=== PATIENT | female | born 1975 | race Caucasian/White ===

== ENCOUNTER → 2021-03-18 15:26 | Outpatient (BNVA) | payer MEDICARE, SELFPAY | PROVIDERS: Family Provider Family Medicine; PCP Family Medicine; Visit Provider Orthopaedic Surgery | DX: R52 Pain, unspecified (principal); M48.062 Spinal stenosis, lumbar region with neurogenic claudication | CPT/HCPCS: 72110 ==

== ENCOUNTER → 2021-05-14 10:07 | Outpatient (BNVA) | payer MEDICARE, SELFPAY | PROVIDERS: Family Provider Family Medicine; PCP Family Medicine; Visit Provider Orthopaedic Surgery | DX: Z20.822 Contact with and (suspected) exposure to COVID-19 (principal); Z01.818 Encounter for other preprocedural examination | CPT/HCPCS: 87635 ==

== ENCOUNTER 2021-05-21 05:27 | Day surgery (SDC) | payer MEDICARE, SELFPAY ==
[2021-05-14 11:26] VITALS: BMI 28.8
--- NOTE | 2021-05-14 15:53 | ANES.PREANE2 ---
Pre-Anesthetic Assessment Pre-Anesthetic Assessment: Height/Weight: Height 1.75 m Weight 88.451 kg Proposed Procedure: Operation Date: 05/21/21 07:00 Proposed Procedures p Lumbar Spine Decompression L4/5 26868 M48.062(Not Applicable) - Pavan Latif, DO Was Beta Kenny taken within 24 hours: N/A Was Clonidine taken within 24 hours: N/A Social: Social History: No alcohol and No tobacco Exam: Pre-Anes Outpt Exam: alert, oriented x 3, clear to auscultation bilaterally and regular rate & rhythm Airway: Submandibular: WNL Cervical ROM: WNL MP: 2 Dentition: Partials Pulmonary: Pulmonary: Asthma Metabolic: Metabolic: DM Musc/skel: Musc/skel: Lower Back Pain Neuropsych: Neuropsych: Neuropathy Anesthetic Plan: ASA status: 3 Anesthesia: General Risk of > 500 ml blood loss (7ml/kg in children): No Data Anesthesia Cardiac Studies: No Data to Display
[2021-05-21] VITALS (7 sets, daily range): BP systolic 101–129; BP diastolic 61–86; PULSE 66–96; RESP 16–18; TEMP 36.4; O2SAT 94–100
--- NOTE | 2021-05-21 | SCC_ITS ---
Procedure Done: 1. Bilateral L4/5 laminectomy with partial facetectomy 5.2 seconds of fluoroscopic guidance, for a cumulative dose of 1.48 mGy, was provided to Dr. Latif by the radiology department. C-arm images of the lumbar spine were saved for the patient's permanent record. [facility]
--- NOTE | 2021-05-21 | XR_ITS ---
WS: [id number] C-ARM RADIOGRAPHS LUMBAR SPINE; 2 IMAGES HISTORY: decompression COMPARISON: None available. Intraoperative marker over the L4-5 disc space. XR/XR lumbar spine 1V [id number] IMPRESSION: Intraoperative marker at the L4-5 disc space.
[2021-05-21] MEDS: sodium chloride 0.9% 1,000 ML 30 ML IV (06:10)
--- NOTE | 2021-05-21 06:43 | W.PM.OPSUD ---
Surgery/Procedure H&P Update DATE OF PROCEDURE: May 21, 2021 DATE H&P PERFORMED: 05/01/21 H&P UPDATE INFORMATION: I have reviewed H&P completed within last 30 days, I have examined patient prior to procedure and No changes to prior documentation PREOP DIAGNOSIS: Lumbar radiculopathy PLANNED PROCEDURE: Operation Date: 05/21/21 07:00 Proposed Procedures p Lumbar Spine Decompression L4/5 38249 M48.062(Not Applicable) - Pavan Latif DO
--- NOTE | 2021-05-21 06:45 | P.ANESUD_ITS ---
Pre-Anesthetic Update Pre-Anesthetic Assessment: Date of Surgery/Procedure: 05/21/21 Preop Anat gnosis: Lumbar radiculopathy Proposed Procedure: Operation Date: 05/21/21 07:00 Proposed Procedures p Lumbar Spine Decompression L4/5 59171 M48.062(Not Applicable) - Pavan Latif, DO Any changes to Pre-Anesthetic Assessment?: No Last Intake: Intake Last Liquid Date 05/20/21 Last Liquid Time 21:00 Last Solid Date 05/20/21 Last Solid Time 21:00 Vitals: Temperature 97.5 F L 05/21/21 05:56 Temperature Source Temporal Artery S can 05/21/21 05:56 Pulse Rate 76 05/21/21 05:56 Respiratory Rate 18 05/21/21 05:56 Blood Pressure 110/86 05/21/21 05:56 Blood Pressure Rose n 94 05/21/21 05:56 Pulse Oximetry 98 05/21/21 05:56 Oxygen Delivery Me thod 05/21/21 06:00 Exam: Pre-Anes Outpt Exam: alert, oriented x 3, clear to auscultation bilaterally and regular rate & rhythm Cardiac Studies: No Data to Display
[2021-05-21 06:48] LABS: Glucose Point of Care 79 mg/dL (70-110)
[2021-05-21] MEDS: clindamycin 900 MG/50 ML PREMIX 100 MG IV (06:56)
--- NOTE | 2021-05-21 07:45 | PM.OP ---
Operative Report Date of procedure: May 21, 2021 Pre-op Diagnosis: lumbar stenosis with neurogenic claudication Post-op diagnosis: same Procedure Done: 1. Bilateral L4/5 laminectomy with partial facetectomy Surgeon: Pavan Latif Waxing Machine Operator Helper: Andres Collazo Waxing Machine Operator Helper: The surgical asst, Andres Collazo, SHONA was needed for his expertise under the microscope. He was important and necessary throughout the procedure to complete in a safe and timely manner. He assisted with patient positioning prepping and draping tissue retraction suctioning of the operative field protection of the dural sac and tissue closure Anesthesia: General Estimated blood loss (mL): 5 Condition: stable Disposition: PACU Procedure: Patient is brought to the operative suite. After undergoing anesthesia they are placed in the prone position. All areas of impingement are well padded. Patient is then prepped and draped in the normal sterile fashion. A skin incision is made over the L4/5 level. This is confirmed under c-arm guidance. A series of dilators are passed and the tubular retractor is docked on the L4 lamina. A bovie is used to clear the soft tissue off the lamina and the L 4/5 facet joint. A high speed harshad is then used to perform the laminectomy and take down the medial aspect of the L 4/5 facet joint. A kerrison rongeure was then used to take down the remaining lamina and smooth the edged of the laminectomy up to the point where the ligamentum flavum attaches. Attention was then brought to the medial aspect of the facet joint. The remaining medial aspect of the superior and inferior aspect of the facet joint were taken down with the kerrison from the pedicle of L4 to L 5. The facet joint had significant hypertrophy. Attention was then brought to the Ligamentum Flavum. The ligament was taken down from the lamina of L4 to L5 and out medially to the remaining facet joint. The ligament was thick. The dura was then exposed. The dura was in good repair. The L4 nerve was then traced with a curette out the L4/5 foramen and found to be adequately decompressed. The L5 nerve was traced with a curette around the L5 pedicle. The lateral recess was opened with a kerrison helping to further decompress the L5 nerve. The tubular retractor was then tilted to the contralateral side. The bovie was used to take down the soft tissue on the spinous process. The high speed harshad was used to take down the spinous process and then the contralateral lamina of L4. The kerrison rongeur was used to take down the remaining lamina to the point where the ligamentum flavum attached and the ligamentum flavum was taken down from L4 to L5. The kerrison rongeur was then used to reach across and take down the medial aspect of the contralateral L4/5 facet joint.The currete was used to trace the contralateral L4 nerve out the L4/5 foramen to make sure it was decompressed adequatesly and the L5 was traced around the L5 pedicle. The lateral recess was opened further with the kerrison to ensure the L5 is adequately decompressed. Wound is then irrigated copiously with saline and surgiflo is used to stop any bleeding. The tubular retractor is removed and the wound is closed with vicryl and monocryl suture. Glue is then used to protect the wound. A sterile dressing is then placed. Patient was then placed in the supine position and transferred to the PACU in stable condition.
[2021-05-21] MEDS: fentaNYL 50 mcg/mL INJ 2mL IVP (07:57)
--- NOTE | 2021-05-21 11:08 | PC.SOCIAL ---
[facility] pharmacy called about pts hydrocodone. Insurance will only cover for 5 tabs per day. Okay'd the pharmacy to make quantity of 35 instead of 42 so insurance will cover.
--- NOTE | 2021-05-21 11:46 | ANE.PACU2 ---
Inpatient post-anesthesia follow up: Airway intact: Yes Vital signs: Temperature 97.6 F Pulse Rate 66 Respiratory Rate 17 Blood Pressure 117/70 Pulse Oximetry 100 Oxygen Delivery Me thod Room Air Oxygen Flow Rate 8 Fraction of Inspir ed Oxygen Hydration adequate: Yes Nausea and vomiting: No Pain level: 2 Mental status: Baseline
== END 2021-05-21 09:15 | disposition home or self-care (01) ==
PROVIDERS: Family Provider Family Medicine; PCP Family Medicine; Visit Provider Orthopaedic Surgery
PROC: (CPT 63005; principal; 2021-05-21 07:00)
DX: M48.062 Spinal stenosis, lumbar region with neurogenic claudication (principal); E11.40 Type 2 diabetes mellitus with diabetic neuropathy, unspecified; Z79.4 Long term (current) use of insulin
CPT/HCPCS: 63047; 36416; 72020; 76000; 82962; J1100; J2405; J2704; J3010; J3490; J7030

== ENCOUNTER → 2021-11-20 12:56 | Outpatient (BNVA) | payer MEDICARE, SELFPAY | PROVIDERS: Family Provider Family Medicine; PCP Family Medicine; Visit Provider Physician Assistant | DX: M48.062 Spinal stenosis, lumbar region with neurogenic claudication (principal) | CPT/HCPCS: 72110; 99213 ==

== ENCOUNTER 2022-02-26 11:16 | Outpatient (CLI) | payer MEDICARE, MEDICAID, SELFPAY ==
--- NOTE | 2022-02-26 11:45 | MR_ITS ---
WS: [id number] MRI LUMBAR SPINE NONCONTRAST TECHNIQUE: Sagittal T1, T2 and STIR imaging. Axial T1 and T2 imaging. CLINICAL INFORMATION: Spinal stenosis, lumbar region with neurogenic claudication COMPARISON: MRI June 24, 2020 FINDINGS: Mild lumbar curve. No acute compression. Slight retrolisthesis L2 on L3. Disc space narrowing worse a t L2-L3 with endplate degenerative changes. Slight retrolisthesis L2 on L3 with mild disc space narro wing. Endplate degenerative changes L2-L3. L1-L2: Mild annular bulging. Slight effacement of ventral thecal sac. Spinal canal and foramen are pa tent. L2-L3: Slight retrolisthesis. Mild annular bulging. Mild facet arthropathy. Spinal canal and foramen are patent. L3-L4: Mild annular bulging. Slight effacement of ventral thecal sac. Mild facet arthropathy. Spinal canal and foramen are patent. L4-L5: Mild annular bulging. Laminectomy defects. Moderate facet arthropathy. Spinal canal is patent. Slight anterolisthesis. Foramen are patent. L5-S1: Mild LEFT eccentric disc osteophytic ridging. Spinal canal foramen are patent. Moderate facet arthropathy with small facet effusions. Visualized pelvic bony structures: Normal. Paravertebral soft tissues: Normal. MR/MR lumbar spine wo con* [id number] IMPRESSION: 1. Mild lumbar curve. No acute compression. Slight retrolisthesis L2 on L3. Sl ight anterolisthesis L4 on L5. This is unchanged from 2020. 2. Postoperative changes L4-L5 hemilaminectomy is new from 2018. 3. Annular bulging L2-L3 with slight impingement RIGHT subarticular recess and traversing RIGHT L3 nerve root. Recommend correlation for RIGHT L3 nerve root symptoms. This is unchanged from previous. 4. Moderate facet arthropathy L4-L5 and L5-S1 with small facet effusions at L5 -S1. 5. No other remarkable interval changes compared to 2020.
== END 2022-02-26 11:17 | disposition home or self-care (01) ==
LOC: RAD 11:23
PROVIDERS: PCP Nurse Practitioner; Visit Provider Physician Assistant
DX: M48.062 Spinal stenosis, lumbar region with neurogenic claudication (principal); M47.817 Spondylosis without myelopathy or radiculopathy, lumbosacral region
CPT/HCPCS: 72148

== ENCOUNTER → 2022-03-10 11:00 | Outpatient (BNVA) | payer MEDICARE, MEDICAID, SELFPAY | PROVIDERS: PCP Nurse Practitioner; Visit Provider Orthopaedic Surgery | DX: D17.9 Benign lipomatous neoplasm, unspecified (principal) | CPT/HCPCS: 99213; 99214 ==

== ENCOUNTER → 2022-09-08 12:58 | Outpatient (BNVA) | payer MEDICARE, MEDICAID, SELFPAY | PROVIDERS: PCP Nurse Practitioner; Visit Provider Surgery | DX: R22.2 Localized swelling, mass and lump, trunk (principal) | CPT/HCPCS: 99203 ==

== ENCOUNTER 2022-10-05 09:38 | Day surgery (SDC) | payer MEDICARE, MEDICAID, SELFPAY ==
[2022-10-02 10:11] VITALS: BMI 25.7
[2022-10-05] VITALS (7 sets, daily range): BP systolic 102–141; BP diastolic 65–85; PULSE 60–87; RESP 14–18; TEMP 36.1–36.7; O2SAT 93–98
--- NOTE | 2022-10-05 10:21 | W.PM.OPSUD ---
Surgery/Procedure H&P Update DATE OF PROCEDURE: October 05, 2022 DATE H&P PERFORMED: 09/08/22 H&P UPDATE INFORMATION: I have reviewed H&P completed within last 30 days, I have examined patient prior to procedure and No changes to prior documentation PREOP DIAGNOSIS: Subcutaneous mass of back PLANNED PROCEDURE: Operation Date: 10/05/22 11:35 Proposed Procedures p 07293 excision of back mass R22.2(Not Applicable) - Chucho Burgess DO
--- NOTE | 2022-10-05 10:28 | P.ANESASSM_ITS ---
Pre-Anesthetic Assessment Height/Weight: Height 1.75 m Weight 78.925 kg Temp Pulse Resp BP Pulse Ox O2 Del Method 97.3 F L 66 18 117/82 98 10/05/22 10:17 10/05/22 10:17 10/05/22 10:17 10/05/22 10:17 10/05/22 10:17 10/05/22 10:18 Preop Diagnosis: Subcutaneous mass of back Operation Date: 10/05/22 11:35 Proposed Procedures p [id number] excision of back mass R22.2(Not Applicable) - Chucho Burgess DO Familial anesthetic complications: None Was Beta Kenny taken within 24 hours: N/A Was Clonidine taken within 24 hours: N/A Last intake: Intake Last Liquid Date 10/04/22 Last Liquid Time 23:59 Last Solid Date 10/04/22 Last Solid Time 23:59 Social No alcohol and No tobacco Exam alert, oriented x 3, clear to auscultation bilaterally and regular rate & rhythm Airway Mallampati: Class II Dentition: partials Pulmonary Asthma Metabolic Diabetes Mellitus Anesthetic Plan ASA status: 2 Anesthesia: General Risk of > 500 ml blood loss (7ml/kg in children): No Medications/Allergies Home Medications Medication Instructions Recorded Confirmed Last Taken Type cetirizine 10 mg tablet (Zyrtec) 10 mg PO DAILY 03/18/21 10/02/22 10/02/22 History montelukast 10 mg tablet 10 mg PO DAILY 03/18/21 10/02/22 10/02/22 History (Singulair) ascorbic acid (vitamin C) 500 mg 500 mg PO DAILY PRN Allergy 05/14/21 10/02/22 Unknown History chewable tablet (Vitamin C) Symptoms eletriptan 40 mg tablet 40 mg PO PRN PRN Migraine Headache 05/14/21 10/02/22 Unknown History erenumab-aooe 140 mg/mL 140 mg SUBCUT Q30D 05/14/21 10/02/22 09/27/22 History subcutaneous auto-injector (Aimovig Autoinjector) insulin glargine 100 unit/mL (3 15 unit SUBCUT QAM 09/08/22 10/02/22 10/02/22 History mL) subcutaneous pen (Lantus Solostar U-100 Insulin) semaglutide 0.25 mg or 0.5 mg (2 1 mg SUBCUT Q7D 09/08/22 10/02/22 09/27/22 History mg/1.5 mL) subcutaneous pen injector (Ozempic) cholecalciferol (vitamin D3) 25 25 mcg PO DAILY 10/02/22 10/02/22 10/02/22 History mcg (1,000 unit) tablet (Vitamin D3) hydrocodone 10 mg-ibuprofen 200 mg 1 tab PO Q6H PRN Pain 10/02/22 10/02/22 10/05/22 08:00 History tablet Allergies Allergy/AdvReac Type Severity Reaction Status Date / Time Penicillins Allergy Severe ALGY-Anaphy Verified 10/02/22 09:58 laxis ceftriaxone [From Rocephin] Allergy ALGY-Rash Verified 10/02/22 09:58 Sulfa (Sulfonamide Allergy rash Verified 10/02/22 09:58 Antibiotics) PFSH Anesthesia Medical History Lipoma Stroke Surgical History H/O elbow surgery right H/O right knee surgery H/O: hysterectomy History of lumbar laminectomy Hx of cholecystectomy Hx of tubal ligation S/P cervical spinal fusion /5 5/6 Family History Mother Diabetes Father Diabetes Grandmother Cancer Uterin Social History Smoking and tobacco status: current every day smoker (Patient vapes) e- cigarettes E-Cigarette Details: with nicotine Alcohol intake: never Data Anesthesia Cardiac Studies: No Data to Display
[2022-10-05 10:48] LABS: Glucose Point of Care 103 mg/dL (70-110)
[2022-10-05] MEDS: sodium chloride 0.9% 1,000 ML 30 ML IV (10:50)
[2022-10-05] MEDS: vancomycin 1,500 MG/300 ML PIGGYBACK 200 MG IV (10:50)
[2022-10-05] MEDS: midazolam 1 mg/mL INJ 2 mL 2 MG IVP (10:54)
[2022-10-05 11:33] LABS: Blood Urea Nitrogen 11 mg/dL (6-20); Calcium 9.5 mg/dL (8.5-10.5); Carbon Dioxide 25 mmol/L (22-29); Chloride 103 mmol/L (98-107); Glomerular Filtration Rate 89.3 mL/min (90-130); Glucose 107 mg/dL (65-115); Osmolality Calculated 290 mOsm/kg (285-295); Sodium 140 mmol/L (136-145)
[2022-10-05 11:34] LABS: Anion Gap 16.4 (5-19); Potassium 4.4 mmol/L (3.5-5.1)
[2022-10-05] MEDS: lidocaine-epi 2% 20 mL INJ INJECTION (11:34)
--- NOTE | 2022-10-05 12:03 | PM.OP ---
Operative Report Date of procedure: October 05, 2022 Pre-op diagnosis: Preop Diagnosis Subcutaneous mass of back Post-op diagnosis: same Procedure done: Excision of subcutaneous mass of back Implants: None Specimens removed/disposition: Subcutaneous mass of back consistent with lipoma Surgeon: Dr. Chucho Burgess DO Anesthesia: General Estimated blood loss (mL): 5 Complications: None apparent Brief History: This is a very pleasant 47-year-old female whose had an enlarging subcutaneous mass of her back this been causing pain. Excision was indicated. The risks and benefits were explained and documented. Procedure: The lower back was inspected prepped and draped in the usual sterile fashion. 2% lidocaine with epinephrine was used to anesthetize the area around the lesion. A 15 blade scalpel then used to make a transverse incision measuring 3 centimeters in length. Incision was carried down to subcutaneous tissue and a lobulated fatty tumor was identified. It had multiple different branches/components. Alveolar tissue was ligated with cautery. The specimen was passed off. Specimen measured 5 cm in greatest diameter. 3-0 Vicryl was used to approximate the dermis, and 4-0 Monocryl was use to close the skin in a running subcuticular fashion. Hemostasis was noted. Skin glue was used. Patient tolerated the procedure well.
--- NOTE | 2022-10-05 13:04 | PC.NURSE ---
Dr Burgess approved patient to take her own Hydrocodone/ibuprofen prior to leaving post-op.
--- NOTE | 2022-10-05 14:33 | ANE.PACU2 ---
Inpatient post-anesthesia follow up: Airway intact: Yes Vital signs: Temperature 97.0 F Pulse Rate 60 Respiratory Rate 18 Blood Pressure 115/77 Pulse Oximetry 97 Oxygen Delivery Me thod Room Air Oxygen Flow Rate 6 Fraction of Inspir ed Oxygen Hydration adequate: Yes Nausea and vomiting: No Pain level: 1 Mental status: Baseline
== END 2022-10-05 13:40 | disposition home or self-care (01) ==
PROVIDERS: Anesthesiology; PCP Nurse Practitioner; Visit Provider Surgery
PROC: (CPT 21931; principal; 2022-10-05 11:25)
DX: D17.1 Benign lipomatous neoplasm of skin and subcutaneous tissue of trunk (principal); J45.909 Unspecified asthma, uncomplicated; E11.9 Type 2 diabetes mellitus without complications; Z79.4 Long term (current) use of insulin; Z86.73 Personal history of transient ischemic attack (TIA), and cerebral infarction without residual deficits; F17.290 Nicotine dependence, other tobacco product, uncomplicated
CPT/HCPCS: 21931; 36416; 80048; 82962; 88307; J1100; J2250; J2405; J2704; J2710; J3010; J3370; J3490; J7030

== ENCOUNTER → 2022-10-20 09:12 | Outpatient (BNVA) | payer MEDICARE, MEDICAID, SELFPAY | PROVIDERS: PCP Nurse Practitioner; Visit Provider Surgery | DX: Z98.890 Other specified postprocedural states (principal); B37.31 Acute candidiasis of vulva and vagina | CPT/HCPCS: 99213 ==

== ENCOUNTER → 2023-02-16 10:47 | Outpatient (BNVA) | payer MEDICARE, SELFPAY | PROVIDERS: Absent Provider Surgery; PCP Nurse Practitioner; Visit Provider Surgery | DX: R22.2 Localized swelling, mass and lump, trunk (principal) | CPT/HCPCS: 99213 ==

== ENCOUNTER 2023-03-08 05:19 | Day surgery (SDC) | payer MEDICARE, SELFPAY ==
[2023-03-05 13:38] VITALS: BMI 25.0
[2023-03-08] VITALS (12 sets, daily range): BP systolic 110–134; BP diastolic 76–91; PULSE 71–90; RESP 10–22; TEMP 36.2–36.7; O2SAT 95–100
[2023-03-08 06:35] LABS: Glucose Point of Care 121 mg/dL (70-110)
[2023-03-08] MEDS: sodium chloride 0.9% 1,000 ML 30 ML IV (06:35)
[2023-03-08] MEDS: vancomycin 1,000 MG in sodium chloride 0.9% 250 ML 250 MG IV (06:35)
[2023-03-08] MEDS: midazolam 1 mg/mL INJ 2 mL 2 MG IVP (06:51)
[2023-03-08] MEDS: fentaNYL 50 mcg/mL INJ 2mL IVP (06:52)
--- NOTE | 2023-03-08 07:00 | P.HPUD_ITS ---
Surgery/Procedure H&P Update DATE OF PROCEDURE: March 08, 2023 DATE H&P PERFORMED: 02/16/23 H&P UPDATE INFORMATION: I have reviewed H&P completed within last 30 days, I have examined patient prior to procedure and No changes to prior documentation PLANNED PROCEDURE: Operation Date: 03/08/23 07:00 Proposed Procedures p [id number] excision of subcutanous mass of back R22.2(Not Applicable) - Chucho regalado, DO
[2023-03-08] MEDS: lidocaine-epi 2% 20 mL INJ INJECTION (07:31)
--- NOTE | 2023-03-08 07:58 | P.OP_ITS ---
Operative Report Date of procedure: March 08, 2023 Surgeon: Chucho Burgess DO Procedure: Pre-op diagnosis: Subcutaneous mass of back Post-op diagnosis: same Procedure done: Excision of subcutaneous mass of back Implants: None Specimens removed/disposition: Subcutaneous mass of back Surgeon: Chucho Burgess DO Anesthesia: General Estimated blood loss (mL): 5 Complications: None apparent Brief History: This very pleasant 36-year-old female suffers from lumbar ago.? I previously excised a lipoma just left of her lumbar spine.? She has a similar mass on the right side that she wants excised.? The risk and benefits procedure were explained and documented. Procedure: Patient was wheeled in operative room and general endotracheal intubation was achieved by the department anesthesia on the hospital bed.? Patient was then placed prone on the OR table.? The back was inspected prepped and draped in usual sterile fashion.? A timeout was performed.? All present were in agreement.? 2% lidocaine with epinephrine was used to anesthetize the area over the subcutaneous mass of her back.? A 15 blade scalpel was then used to make a 3 cm incision horizontally.? Dissection was carried down with electrocautery through the fascia.? A fatty subcutaneous mass was identified.? Alveolar tissue and attachments were ligated with electrocautery.? The mass was removed en bloc.? 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 Hemostasis was controlled electrocautery.? Dermis was approximated with 3-0 Vicryl in a subcuticular interrupted fashion.? Skin was closed with 4-0 Monocryl in a subcuticular running fashion.? Dermabond was applied.? Patient tolerated procedure well.
[2023-03-08] MEDS: cetylpyridinium Lozenge 1 EACH MUCOUS MEM (08:40)
[2023-03-08] MEDS: morphine 4 mg/mL SDV 1 mL IVP (08:43)
[2023-03-08] MEDS: HYDROcodone-acetaminophen 10-325 mg Tablet 1 TAB PO (08:51)
[2023-03-08] MEDS: ondansetron 2 mg/ML SDV 2 mL 4 MG IVP (09:05)
--- NOTE | 2023-03-08 12:02 | P.ANESASSM_ITS ---
Pre-Anesthetic Assessment Height/Weight: Height 1.78 m Weight 78.925 kg Temp Pulse Resp BP Pulse Ox O2 Del Method O2 Flow Rate 97.7 F 81 18 130/84 97 Room Air 6 03/08/23 08:21 03/08/23 09:00 03/08/23 09:00 03/08/23 09:00 03/08/23 09:00 03/08/23 09:00 03/08/23 08:02 Operation Date: 03/08/23 07:00 Proposed Procedures p [id number] excision of subcutanous mass of back R22.2(Not Applicable) - Chucho Burgess DO Familial anesthetic complications: none Was Beta Kenny taken within 24 hours: N/A Was Clonidine taken within 24 hours: N/A Last intake: Intake Last Liquid Date 03/07/23 Last Liquid Time 21:15 Last Solid Date 03/07/23 Last Solid Time 20:15 Social No alcohol and No tobacco Exam alert, oriented x 3, clear to auscultation bilaterally and regular rate & rhythm Airway Submandibular: within normal limits Cervical ROM: within normal limits Mallampati: Class II Dentition: chipped Musc/skel Lower Back Pain Anesthetic Plan ASA status: 2 Anesthesia: General Medications/Allergies Home Medications Medication Instructions Recorded Confirmed Last Taken Type cetirizine 10 mg tablet (Zyrtec) 10 mg PO DAILY 03/18/21 03/05/23 03/07/23 History montelukast 10 mg tablet 10 mg PO DAILY 03/18/21 03/05/23 03/07/23 History (Singulair) ascorbic acid (vitamin C) 500 mg 500 mg PO DAILY PRN Allergy 05/14/21 03/05/23 03/05/23 History chewable tablet (Vitamin C) Symptoms eletriptan 40 mg tablet 40 mg PO PRN PRN Migraine Headache 05/14/21 03/05/23 Unknown History erenumab-aooe 140 mg/mL 140 mg SUBCUT Q30D 05/14/21 03/05/23 02/14/23 History subcutaneous auto-injector (Aimovig Autoinjector) insulin glargine 100 unit/mL (3 15 unit SUBCUT QAM 09/08/22 03/05/23 03/07/23 History mL) subcutaneous pen (Lantus Solostar U-100 Insulin) semaglutide 0.25 mg or 0.5 mg (2 1 mg SUBCUT Q7D 09/08/22 03/05/23 02/25/23 History mg/1.5 mL) subcutaneous pen injector (Ozempic) cholecalciferol (vitamin D3) 25 25 mcg PO Q7D 10/02/22 03/05/23 02/26/23 History mcg (1,000 unit) tablet (Vitamin D3) hydrocodone 10 mg-ibuprofen 200 mg 1 tab PO Q6H PRN Pain 10/02/22 03/05/23 03/07/23 History tablet ondansetron 8 mg disintegrating 8 mg PO Q8H PRN nausea and 10/06/22 03/05/23 Unknown Rx tablet vomiting #30 tabs docusate sodium 100 mg capsule 100 mg PO BID #14 caps 03/08/23 Unknown Rx (Colace) hydrocodone 10 mg-acetaminophen 1 tab PO Q6H PRN pain 4 days #15 03/08/23 Unknown Rx 325 mg tablet tabs Allergies Allergy/AdvReac Type Severity Reaction Status Date / Time Penicillins Allergy Severe ALGY-Anaphy Verified 03/08/23 05:59 laxis ceftriaxone [From Rocephin] Allergy ALGY-Rash Verified 03/08/23 05:59 Sulfa (Sulfonamide Allergy rash Verified 03/08/23 05:59 Antibiotics) PFSH Anesthesia Medical History Lipoma Stroke Surgical History H/O elbow surgery right H/O right knee surgery H/O: hysterectomy History of lumbar laminectomy History of surgery Excision of subcutaneous mass of back Hx of cholecystectomy Hx of tubal ligation S/P cervical spinal fusion 09/30 10/31 Family History Mother Diabetes Father Diabetes Grandmother Cancer Uterin Social History Smoking and tobacco status: current every day smoker (Patient vapes) e- cigarettes E-Cigarette Details: with nicotine Alcohol intake: never Data Anesthesia Cardiac Studies: No Data to Display
--- NOTE | 2023-03-08 16:58 | ANE.PACU2 ---
Inpatient post-anesthesia follow up: Airway intact: Yes Vital signs: Temperature 97.7 F Pulse Rate 81 Respiratory Rate 18 Blood Pressure 130/84 Pulse Oximetry 97 Oxygen Delivery Me thod Room Air Oxygen Flow Rate 6 Fraction of Inspir ed Oxygen Hydration adequate: Yes Nausea and vomiting: No Pain level: 2 Mental status: Baseline
== END 2023-03-08 09:20 | disposition home or self-care (01) ==
PROVIDERS: PCP Nurse Practitioner; Visit Provider Surgery
PROC: (CPT 11403; principal; 2023-03-08 07:00)
DX: D17.1 Benign lipomatous neoplasm of skin and subcutaneous tissue of trunk (principal); F17.290 Nicotine dependence, other tobacco product, uncomplicated
CPT/HCPCS: 11403; 12032; 36416; 82962; 88304; J1100; J2250; J2270; J2405; J2704; J3010; J3370; J3490; J7030; J7050

== ENCOUNTER → 2023-03-23 08:20 | Outpatient (BNVA) | payer MEDICARE, SELFPAY | PROVIDERS: PCP Nurse Practitioner; Visit Provider Surgery | DX: Z98.890 Other specified postprocedural states (principal) | CPT/HCPCS: 99213 ==

== ENCOUNTER → 2023-04-15 10:21 | Outpatient (BNVA) | payer MEDICARE, SELFPAY | PROVIDERS: PCP Nurse Practitioner; Visit Provider Orthopaedic Surgery | DX: M48.062 Spinal stenosis, lumbar region with neurogenic claudication (principal) | CPT/HCPCS: 99214 ==

== ENCOUNTER 2023-08-29 11:46 | Emergency (ER) | payer MEDICARE, SELFPAY ==
--- NOTE | 2023-08-29 11:49 | XRR_ITS ---
PROCEDURE INFORMATION: Exam: XR Right Knee Exam date and time: 08/29/2023 1:26 PM Age: 48 years old Clinical indication: Difficulty in walking and swelling or effusion of joint and other: Cold feeling in leg. Knee; Prior surgery; Surgery date: <1 month; Surgery type: Meniscus; Additional info: Fall TECHNIQUE: Imaging protocol: Radiologic exam of the right knee. Views: 3 views. COMPARISON: [place] [id number] 08/29/2023 1:13 PM FINDINGS: Bones/joints: There is narrowing of the medial knee joint compartment with medial marginal osteophytes consistent with grade 3 osteoarthritis. No acute fracture or dislocation. Small knee joint effusion. Soft tissues: Normal. XR/XR knee RT 3V* [id number] IMPRESSION: 1. Grade 3 osteoarthritis of the knee. 2. No acute fracture or dislocation.
[2023-08-29 13:15] VITALS: BP 153/88; PULSE 75; RESP 16; TEMP 36.6; O2SAT 99; BMI 24.3
--- NOTE | 2023-08-29 13:21 | W.ED.EXTPRO ---
HPI - Extremity Problem General: Chief complaint: Extremity Injury, Lower Stated complaint: fell, right knee pain Time Seen by Provider: 08/29/23 13:20 History of Present Illness: 48-year-old female comes in today with complaints of pain going from the calf to the upper leg after tripping and falling yesterday. Patient has a picture on her phone showing vascular engorgement and had shown it to her primary care provider through messaging and they thought she might have a DVT so referred her to the ER. Patient does have some swelling to the knee. Enlargement of the knee is noted. Patient is able to bear weight on the knee. Patient is concerned for DVT or meniscal injury. Review of Systems General: Reports: 10 or more systems reviewed and unremarkable except in HPI and below PFSH ED PFSH: Medical History Lipoma Stroke Surgical History H/O elbow surgery right H/O right knee surgery H/O: hysterectomy History of lumbar laminectomy History of surgery Excision of subcutaneous mass of back Hx of cholecystectomy Hx of excision of mass 03/08/23 Dr. Burgess Hx of tubal ligation S/P cervical spinal fusion 09/30 10/31 Family History Mother Diabetes Father Diabetes Grandmother Cancer Uterin Social History Smoking and tobacco/nicotine status: current every day tobacco/nicotine user (Patient vapes) e-cigarettes E-Cigarette Details: with nicotine Alcohol intake: never Physical Exam Const: COMMON NORMALS: alert HENMT: COMMON NORMALS: normocephalic HEAD & SCALP: normocephalic Neck/C-Spine: COMMON NORMALS: full ROM Resp: COMMON NORMALS: normal respiratory effort Cardio: COMMON NORMALS: regular rate RATE: regular rate Back/Pelvis: COMMON NORMALS: thoracic and lumbar spine normal to inspection Extremity: RIGHT LOWER EXTREMITY: Yes knee joint (Decreased range of motion due to swelling and pain.) Neuro: SENSORIUM/ORIENTATION: Yes alert Skin: COMMON NORMALS: turgor normal GENERAL SKIN EXAM: turgor normal Course Vital Signs: Vital signs: Vital Signs Temperature 97.9 F 08/29/23 13:15 Pulse Rate 75 08/29/23 13:15 Respiratory Rate 16 08/29/23 13:15 Blood Pressure 153/88 08/29/23 13:15 Pulse Oximetry 99 08/29/23 13:15 Oxygen Delivery Me thod Room Air 08/29/23 13:15 MDM - Extremity (Nontraumatic) Medical Decision Making 48-year-old female comes in today for complaints of injury to the right leg. Patient reports pain in her knee since falling on it yesterday. Patient was also concerned due to swelling and engorgement of the vessels of the lower leg. Patient does have some mild swelling to the lower extremity, compared to the left. Decreased range of motion of the knee due to swelling and pain. Distal pulses are intact. Differential diagnosis includes but not limited to osteoarthritis, sprain, contusion, DVT. X-ray of the knee was unremarkable except for some degenerative changes. Ultrasound of the extremity ruled out DVT. Reviewed exam with patient with recommendations for treatment follow-up. Suspect probably vascular congestion was secondary to immobility due to pain. Patient reports understanding of care plan need for follow-up or return to the ER. XR interpretation done by ED provider, pending radiology final review Discharge Plan Discharge Patient Disposition: Home Clinical Impression: Fall Qualifiers: Encounter type: initial encounter Qualified Code(s): W19.XXXA - Unspecified fall, initial encounter Injury of knee Qualifiers: Encounter type: initial encounter Laterality: right Qualified Code(s): S89.91XA - Unspecified injury of right lower leg, initial encounter Condition: Stable Prescriptions: No Action cetirizine [Zyrtec] 10 mg tablet 10 mg PO DAILY montelukast [Singulair] 10 mg tablet 10 mg PO DAILY Ozempic 0.25 mg or 0.5 mg(2 mg/1.5 mL) pen injector 1 mg SUBCUT Q7D Rx Instructions: ON WEDNESDAY insulin glargine [Lantus Solostar U-100 Insulin] 100 unit/mL (3 mL) insulin pen 15 unit SUBCUT QAM ondansetron 8 mg tablet,disintegrating 8 mg PO Q8H PRN (Reason: nausea and vomiting) Qty: 30 1RF fluconazole [Diflucan] 150 mg tablet 150 mg PO DAILY Qty: 1 1RF ascorbic acid (vitamin C) [Vitamin C] 500 mg Tablet,Chewable 500 mg PO DAILY PRN (Reason: Allergy Symptoms) eletriptan 40 mg tablet 40 mg PO PRN PRN (Reason: Migraine Headache) Aimovig Autoinjector 140 mg/mL auto-injector 140 mg SUBCUT Q30D cholecalciferol (vitamin D3) [Vitamin D3] 25 mcg (1,000 unit) Tablet 25 mcg PO Q7D hydrocodone-ibuprofen 10-200 mg Tablet 1 tab PO Q6H PRN (Reason: Pain) Hold Instructions: Resume on 03/11/23. Colace 100 mg capsule 100 mg PO BID Qty: 14 0RF Discharge Orders: Discharge ED (Routine); Ordered 08/29/23 Ordered By: Christiano Frankel Referrals: Maya Grier NP [Primary Care Provider] - Discharge Diet: Usual diet Discharge Activity: Increase activity as tolerated Patient Instructions: Knee Pain (ED) Activity Restrictions/Additional Instructions: Use acetaminophen or ibuprofen as needed for pain. Activity as tolerated. Use ice or heat for further pain relief. Follow-up with primary care for further instruction. Return to ED for new concerns. Coding Level of Care Code ED [employer] for [employer]
--- NOTE | 2023-08-29 13:25 | USR_ITS ---
PROCEDURE INFORMATION: Exam: US Duplex Right Lower Extremity Veins, Limited Exam date and time: 08/29/2023 1:13 PM Age: 48 years old Clinical indication: Pain; Leg, lower; Right; Additional info: R/O dvt TECHNIQUE: Imaging protocol: Real-time duplex ultrasound of the right extremity with 2-D garcia scale, color Doppler flow and spectral waveform analysis including responses to compression and other maneuvers (when performed) with image documentation. Limited exam was focused on the right lower extremity veins. COMPARISON: No relevant prior studies available. FINDINGS: Right deep veins: Unremarkable. The common femoral, femoral, proximal profunda femoral and popliteal veins are patent without thrombus. Normal Doppler waveforms. Normal compressibility and/or augmentation response. Superficial veins: Greater saphenous vein at the saphenofemoral junction is patent without thrombus. Soft tissues: Unremarkable. US/[place] [id number] IMPRESSION: No evidence of deep vein thrombosis.
== END 2023-08-29 15:04 | disposition home or self-care (01) ==
PROVIDERS: Emergency Provider Nurse Practitioner Family; PCP Nurse Practitioner
DX: S89.91XA Unspecified injury of right lower leg, initial encounter (principal); Z79.4 Long term (current) use of insulin; F17.290 Nicotine dependence, other tobacco product, uncomplicated; Z86.73 Personal history of transient ischemic attack (TIA), and cerebral infarction without residual deficits; W01.0XXA Fall on same level from slipping, tripping and stumbling without subsequent striking against object, initial encounter
CPT/HCPCS: 73562; 93971; 99284

== ENCOUNTER 2023-10-26 13:52 | Outpatient (CLI) | payer MEDICARE, SELFPAY ==
--- NOTE | 2023-10-26 14:00 | XR_ITS ---
WS: [email or web address] XR lumbar spine f/e only [id number] REASON FOR EXAM: POSTLAMINECTOMY SYNDROME FINDINGS: Severe narrowing of the L2-L3 disc space with 6 mm of anterolisthesis of L3 in relation to L2 in the neutral position. This listhesis does not change significantly with flexion. It is slightly reduced with extension. XR/XR lumbar spine f/e only [id number] IMPRESSION: L2-L3 listhesis as above. There has been progression of the disc disease at L to L3 compared to 10/31/2021.
== END 2023-10-26 13:53 | disposition home or self-care (01) ==
LOC: RAD 13:57
PROVIDERS: PCP Nurse Practitioner; Visit Provider Anesthesiology Pain Medicine
DX: M96.1 Postlaminectomy syndrome, not elsewhere classified (principal)
CPT/HCPCS: 72120

== ENCOUNTER 2023-11-05 09:10 | Outpatient (CLI) | payer MEDICARE, SELFPAY ==
--- NOTE | 2023-11-05 10:15 | XR_ITS ---
WS: [email or web address] Lateral views of cervical spine in the flexion, extension and neutral positions. 11/05/2023 Clinical Data: CERVICALGIA Comparison: Lateral cervical spine, 12/27/2018r Findings: There is a bony fusion at C5-C6 unchanged. There is an anterior cervical disc fusion at C6-C7 unchang ed. There is 0.3 cm anterior subluxation of C3 on C4 which changes little on flexion or extension. Th ere is posterior subluxation of C4 on C5 of 0.2 cm which is accentuated on extension but reduces on f lexion. There is degenerative disc narrowing at C4-C5 with anterior and posterior osteophytes. There is no prevertebral soft tissue swelling. No compression fractures are seen. XR/XR cervical spine fl/ex [id number] Impression: 1. Stable fusion at C5-C6 and stable anterior cervical disc fusion at C6-C7. 2. 0.3 cm anterior subluxation of C3 on C4 which changes little on flexion or e xtension. 3. Posterior subluxation of C4 on C5 is 0.2 cm which is seen on extension but r educes on flexion. 4. Degenerative disc narrowing at C4-C5 with anterior and posterior osteophytes .
== END 2023-11-05 09:11 | disposition home or self-care (01) ==
LOC: RAD 09:11
PROVIDERS: PCP Nurse Practitioner; Visit Provider Nurse Practitioner
DX: M96.1 Postlaminectomy syndrome, not elsewhere classified (principal); M47.812 Spondylosis without myelopathy or radiculopathy, cervical region
CPT/HCPCS: 72040

== ENCOUNTER 2023-11-05 09:14 | Outpatient (CLI) | payer MEDICARE, SELFPAY ==
--- NOTE | 2023-11-05 09:19 | MR_ITS ---
WS: [id number] MRI LUMBAR SPINE WITH CONTRAST TECHNIQUE: Sagittal T1, T2 and STIR imaging. Axial T1 and T2 imaging. Post gadolinium imaging was obt ained. CLINICAL INFORMATION: POSTLAMINECTOMY SYNDROME COMPARISON: Outside MRI 03/28/2023 FINDINGS: Mild lumbar curve. No acute compression. Disc space narrowing worse at L2-3 with slight retrolisthesi s. L1-L2: Mild annular bulging. Mild facet arthropathy.Spinal canal and foramen are patent. L2-L3: Slight retrolisthesis L2 on L3. Mild annular bulging. Slight narrowing RIGHT subarticular rece ss. Mild facet arthropathy. Mild RIGHT and no significant LEFT foraminal narrowing. L3-L4: Mild annular bulging. Moderate facet arthropathy. Spinal canal and foramen are patent. L4-L5: Mild annular bulging. Moderate facet arthropathy. Spinal canal and foramen are patent. L5-S1: Mild osteophytic ridging eccentric to the LEFT. Spinal canal and foramen are patent. Moderate to advanced facet arthropathy with small facet effusions. Visualized pelvic bony structures: Normal. Paravertebral soft tissues: Normal. MR/MR lumbar spine wo/w con [id number] IMPRESSION: 1. Mild lumbar curve. No acute compression. Disc desiccation worse at L2-3 wit h endplate degenerative changes. This is progressed compared to previous. 2. Mild disc bulging L2-3 with impingement the RIGHT subarticular recess and t raversing RIGHT L3 nerve root. Mild RIGHT L2-3 foraminal narrowing appears prog ressed. 3. Moderate to advanced facet arthropathy L3-L5. 4. Prior postoperative changes L4-5 hemilaminectomies. Spinal canal and forame n are patent at this level.
[2023-11-05] MEDS: gadobenate dimeglumine 20 mL vial IV (10:00)
== END 2023-11-05 09:15 | disposition home or self-care (01) ==
LOC: RAD 09:16
PROVIDERS: PCP Nurse Practitioner; Visit Provider Anesthesiology Pain Medicine
DX: M54.2 Cervicalgia (principal); M51.36 Other intervertebral disc degeneration, lumbar region; M47.816 Spondylosis without myelopathy or radiculopathy, lumbar region; M96.1 Postlaminectomy syndrome, not elsewhere classified; M47.812 Spondylosis without myelopathy or radiculopathy, cervical region
CPT/HCPCS: 72040; 72158; A9577

== ENCOUNTER → 2024-06-06 10:43 | Outpatient (BNVA) | payer MEDICARE, SELFPAY | PROVIDERS: PCP Nurse Practitioner; Visit Provider Orthopaedic Surgery | DX: M48.062 Spinal stenosis, lumbar region with neurogenic claudication (principal); M54.6 Pain in thoracic spine | CPT/HCPCS: 72072; 72110; 99214 ==

== ENCOUNTER 2024-06-12 09:10 | Outpatient (CLI) | payer MEDICARE, SELFPAY ==
--- NOTE | 2024-06-12 09:30 | MR_ITS ---
WS: [email or web address] MRI THORACIC SPINE noncontrast HISTORY: Chronic neck and back pain. COMPARISON: No similar studies. TECHNIQUE: Multiplanar sequences are performed in sagittal and axial planes. Prior fusion at C7-T1. Posterior thoracic alignment is normal. Disc spaces are mildly narrowed throug hout. No acute fracture. Hemangioma within T10. Signal within the cord is normal. No cord atrophy or enlargement. Conus tapers normally at L1. No central disc protrusions. Mild facet joint arthritis beginning at T6-7 through T12-L1. No high-gra de stenosis. Shallow RIGHT paracentral disc protrusion at T12-L1. Paracentral soft tissues are normal. MR/MR thoracic spin wo con* [id number] IMPRESSION: 1. No high-grade central or foraminal thoracic stenosis. 2. Mild degenerative spondylitic changes. 3. No cord compression. 4. Shallow RIGHT paracentral disc protrusion at T12-L1.
--- NOTE | 2024-06-12 10:15 | MR_ITS ---
WS: [email or web address] MRI CERVICAL SPINE NONCONTRAST HISTORY: Neck Pain COMPARISON: 02/10/2016 Technique: Multiplanar, multisequence noncontrast imaging of the cervical spine. Since the prior MRI anterior cervical fusion with hardware at C7-T1 is been placed. There is addition al osseous fusion without hardware at C5-6. C4 retrolisthesis by 3 mm. Signal within the cervical cord is normal. Visualized posterior fossa is unremarkable. Craniocervical junction, C1 and C2 relationship, odontoid process and soft tissues are normal. C2-C3: Small central disc protrusion no stenosis. C3-C4: Mild osteophytic ridging. Small bilateral foraminal osteophytes. Very minimal narrowing of the LEFT foramen. C4-C5: Diffuse osteophytic ridging with annular disc bulging. C4 retrolisthesis. Progressive effaceme nt of ventral CSF with bilateral foraminal osteophytes increasing in size. Moderate central and bilat eral foraminal stenosis. C5-C6: No significant stenosis. Previously described osteophyte and disc disease has improved. C6-C7: Mild encroachment upon the ventral thecal sac. Mild LEFT foraminal stenosis. C7-T1: Small central disc protrusion. Paraspinal soft tissue are normal. MR/MR cervical spin wo con* [id number] IMPRESSION: 1. New since 02/10/2016 is an intact bony fusion at C5-6. 2. New since 02/10/2016 is an anterior cervical fusion at C7-T1. 3. Progression of degenerative disc disease. 4. C4 retrolisthesis by 3 mm is new. 5. C3-4: Mild LEFT foraminal narrowing due to osteophyte disease. 6. C4-5: Moderate central and bilateral foraminal stenosis has progressed sinc e the prior study. 7. C6-7: Mild LEFT foraminal stenosis.
== END 2024-06-12 09:11 | disposition home or self-care (01) ==
PROVIDERS: PCP Nurse Practitioner; Visit Provider Orthopaedic Surgery
DX: M50.321 Other cervical disc degeneration at C4-C5 level (principal); M25.78 Osteophyte, vertebrae; M99.61 Osseous and subluxation stenosis of intervertebral foramina of cervical region; D18.09 Hemangioma of other sites; M51.34 Other intervertebral disc degeneration, thoracic region
CPT/HCPCS: 72141; 72146

== ENCOUNTER → 2024-07-13 13:58 | Outpatient (BNVA) | payer MEDICARE, SELFPAY | PROVIDERS: PCP Nurse Practitioner; Visit Provider Orthopaedic Surgery | DX: M54.12 Radiculopathy, cervical region | CPT/HCPCS: 99214 ==

== ENCOUNTER → 2024-09-23 11:06 | Outpatient (BNVA) | payer MEDICARE, SELFPAY | PROVIDERS: PCP Family Medicine; Visit Provider Registered Nurse Neonatal Intensive Care | DX: J02.9 Acute pharyngitis, unspecified (principal) | CPT/HCPCS: 87071; 87880 ==

== ENCOUNTER → 2024-09-25 10:34 | Outpatient (BNVA) | payer MEDICARE, SELFPAY | PROVIDERS: PCP Family Medicine; Referring Provider Orthopaedic Surgery; Visit Provider Anesthesiology Pain Medicine | DX: M54.2 Cervicalgia (principal); F17.200 Nicotine dependence, unspecified, uncomplicated | CPT/HCPCS: 99204 ==

== ENCOUNTER → 2024-10-02 15:08 | Outpatient (BNVA) | payer MEDICARE, SELFPAY | PROVIDERS: PCP Family Medicine; Visit Provider Nurse Practitioner | DX: R53.83 Other fatigue (principal) | CPT/HCPCS: 85025 ==

== ENCOUNTER → 2024-10-10 13:13 | Outpatient (BNVA) | payer MEDICARE, SELFPAY | PROVIDERS: PCP Family Medicine; Visit Provider Orthopaedic Surgery | DX: M54.12 Radiculopathy, cervical region (principal) | CPT/HCPCS: 99213 ==

== ENCOUNTER → 2024-10-16 12:53 | Outpatient (BNVA) | payer MEDICARE, SELFPAY | PROVIDERS: PCP Family Medicine; Visit Provider Anesthesiology Pain Medicine | DX: M79.18 Myalgia, other site (principal); M54.2 Cervicalgia; Z87.891 Personal history of nicotine dependence | CPT/HCPCS: 20553; 99213; J1010; J3490 ==

== ENCOUNTER → 2024-10-20 07:07 | Outpatient (BNVA) | payer SELFPAY | PROVIDERS: PCP Family Medicine; Visit Provider Family Medicine | DX: E11.9 Type 2 diabetes mellitus without complications (principal); E78.2 Mixed hyperlipidemia; E55.9 Vitamin D deficiency, unspecified; K76.0 Fatty (change of) liver, not elsewhere classified; R53.83 Other fatigue | CPT/HCPCS: 80053; 80061; 82043; 82306; 82607; 83036; 84439; 84443 ==

== ENCOUNTER → 2025-01-09 13:10 | Outpatient (BNVA) | payer MEDICARE, SELFPAY | PROVIDERS: PCP Family Medicine; Visit Provider Orthopaedic Surgery | DX: M54.12 Radiculopathy, cervical region (principal) | CPT/HCPCS: 99213 ==

== ENCOUNTER → 2025-04-17 11:33 | Outpatient (BNVA) | payer MEDICARE, SELFPAY | PROVIDERS: PCP Family Medicine; Visit Provider Family Medicine | DX: E11.65 Type 2 diabetes mellitus with hyperglycemia (principal); Z79.4 Long term (current) use of insulin; K76.0 Fatty (change of) liver, not elsewhere classified; Z11.4 Encounter for screening for human immunodeficiency virus [HIV]; Z11.59 Encounter for screening for other viral diseases | CPT/HCPCS: 80053; 83036; 86803; 87806 ==

== ENCOUNTER 2025-05-01 06:00 | Outpatient (CLI) | payer MEDICARE, SELFPAY ==
--- NOTE | 2025-05-01 06:30 | US_ITS ---
WS: [email or web address] RIGHT UPPER QUADRANT ULTRASOUND HISTORY: fatty liver; COMPARISON: None available. Liver: 16.5 cm in length. Normal size liver. Moderate hepatic steatosis. No mass identified. Surface of the liver is becoming slightly irregular. Portal Vein: Normal hepatopetal flow with monophasic waveform. Gallbladder: Gallbladder is not identified. CBD: 0.4 cm Pancreas: Normal size and echogenicity. Right kidney: 9.3 cm in length. Normal size and echogenicity. No hydronephrosis or mass. Aorta and IVC: Unremarkable abdominal aorta and IVC. No ascites. US/US abdomen limited [id number] IMPRESSION: 1. Moderate hepatic steatosis. No hepatomegaly. 2. Prior cholecystectomy. 3. No intrahepatic duct dilatation.
== END 2025-05-01 06:01 | disposition home or self-care (01) ==
PROVIDERS: PCP Family Medicine; Visit Provider Family Medicine
DX: K76.0 Fatty (change of) liver, not elsewhere classified (principal); Z90.49 Acquired absence of other specified parts of digestive tract
CPT/HCPCS: 76705